=== PATIENT | female | born 1995 | race Caucasian/White ===

== ENCOUNTER 2021-03-24 17:53 | Emergency (ER) | payer OTHER ==
[2021-03-24 18:39] LABS: BASOPHILS % (AUTO) 0.6 %; EOSINOPHILS # (AUTO) 0.1 10^3/uL (0.0-0.7); EOSINOPHILS % (AUTO) 1.1 %; HCT - HEMATOCRIT 40.4 % (37.0-47.0); HGB - HEMOGLOBIN 13.6 g/dL (12.0-16.0); LYMPHOCYTES # (AUTO) 2.5 10^3/uL (1.5-3.5); LYMPHOCYTES % (AUTO) 35.8 %; MEAN CORPUSCULAR HEMOGLOBIN 30.2 pg (27.0-31.0); MEAN CORPUSCULAR HGB CONC 33.7 g/dL (32.0-36.0); MEAN CORPUSCULAR VOLUME 89.6 fL (81.0-99.0); MEAN PLATELET VOLUME 8.6 fL (7.9-10.8); MONOCYTES # (AUTO) 0.6 10^3/uL (0.0-1.0); MONOCYTES % (AUTO) 8.9 %; NEUTROPHILS # (AUTO) 3.8 10^3/uL (1.5-6.6); NEUTROPHILS % (AUTO) 53.2 %; PLT - PLATELET COUNT 340 10^3/uL (130-450); RED BLOOD COUNT 4.51 10^6/uL (4.20-5.40); RED CELL DISTRIBUTION WIDTH 12.1 % (12.0-15.0); WHITE BLOOD COUNT 7.1 x10^3/uL (4.8-10.8)
[2021-03-24 18:51] LABS: ALBUMIN 4.7 g/dL (3.2-5.5); ALBUMIN/GLOBULIN RATIO 1.4 (1.0-2.2); BILIRUBIN,TOTAL 0.7 mg/dL (0.2-1.0); CALCIUM 9.4 mg/dL (8.5-10.3); CREATININE 0.7 mg/dL (0.4-1.0); POTASSIUM 4.3 mmol/L (3.5-5.0)
[2021-03-24 18:56] LABS: BILIRUBIN,URINE NEGATIVE (NEGATIVE); GLUCOSE, URINE (UA) NEGATIVE (NEGATIVE); KETONES,URINE (UA) NEGATIVE (NEGATIVE); LEUKOCYTE ESTERASE, URINE NEGATIVE (NEGATIVE); NITRITE,URINE NEGATIVE (NEGATIVE); OCCULT BLOOD,URINE NEGATIVE (NEGATIVE); PH,URINE 5.5 PH (5.0-7.5); PROTEIN,URINE NEGATIVE (NEGATIVE); UROBILINOGEN,URINE 0.2 (NORMAL) E.U./dL (NORMAL)
[2021-03-24 18:58] LABS: CLARITY,URINE CLEAR (CLEAR); HCG UR QUAL NEGATIVE
[2021-03-24 19:08] LABS: THYROID STIMULATING HORMONE 5.22 uIU/mL (0.34-5.60)
[2021-03-24 19:10] LABS: FREE T4 (FREE THYROXINE) 1.1 ng/dL (0.58-1.64)
--- NOTE | 2021-03-24 19:22 | ED Physician Documentation ---
History of Present Illness - Stated complaint Stated Complaint: TIGHT THROAT, HARD TO TALK - Chief complaint Chief Complaint: Resp - Additonal information Additional information: 25-year-old female presents the emergency department with the sensation that her throat is closing up. She reports that she was recently diagnosed with Raymond's and has been started on levothyroxine. Earlier this morning she was on the phone speaking to her dad and began touching her throat. She felt an uncomfortable sensation in the left side of her throat and since then has felt a pressure and fluidlike sensation in it. She feels that her throat is closing up and she has felt that it is worse when talking. There have been no fevers no dysphonia. She denies a sore throat or any signs of drip. She has no cough congestion. Denies any postnasal drip. She is very anxious in the exam room tearful and crying afraid that something is wrong. Review of Systems Constitutional: denies: Fever, Chills Eyes: reports: Reviewed and negative Ears: reports: Reviewed and negative Nose: reports: Reviewed and negative Throat: reports: Other (Sensation of throat pain on the left side. 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: Endometriosis Psych: Depression, Anxiety - Past Surgical History Past Surgical History: Yes /STERILE PROCESSING TECHNICIAN: Endometrial ablation - Present Medications Home Medications: Ambulatory Orders Medication Instructions Recorded Confirmed Bupropion HCl [Wellbutrin Xl] 300 mg PO DAILY 03/24/21 03/24/21 Cetirizine [ZyrTEC] 10 mg PO BID 03/24/21 03/24/21 Dextroamphetamine/Amphetamine 10 mg PO DAILY 03/24/21 03/24/21 [Dextroamp-Amphetamine 5 mg Tab] Famotidine [Pepcid] 20 mg PO BID 03/24/21 03/24/21 Levothyroxine [Synthroid] 75 mcg PO DAILY 03/24/21 03/24/21 busPIRone [Buspar] 5 mg PO DAILY 03/24/21 03/24/21 - Allergies Allergies/Adverse Reactions: Allergies Allergy/AdvReac Type Severity Reaction Status Date / Time diphenhydramine Allergy Anaphylaxis Verified 03/24/21 17:58 [From Benadryl Allergy] Sulfa (Sulfonamide Allergy Rash Verified 03/24/21 17:58 Antibiotics) - Social History Does the pt smoke?: No Smoking Status: Never smoker Does the pt drink ETOH?: No Does the pt have substance abuse?: No PD ED PE EXPANDED - General General: Alert, Anxious - HEENT HEENT: PERRL, Moist mucous membranes, Pharynx normal, Other (Normal phonation. Full range of motion of the neck in all planes. No dysphonia. No inability to tolerate oral secretions. No external signs of swelling or asymmetry of the throat. No thyromegaly.). No: Rhinorrhea, Pharyngeal erythema, Swollen tonsils, Tonsillar exudate, DIALYSIS REGISTERED NURSE, Oral lesions / sores - Neck Neck: Supple w/out meningeal sx. No: Stiff neck, Adenopathy, Thyroid enlarged / mass, No tenderness, Limited ROM - Cardiac Cardiac: Tachy, Radial strong equal, Pedal strong equal, Cap refill < 2 sec. No: Murmur Present - Respiratory Respiratory: Clear to ausultation eve. No: Distress, Labored - Abdomen Abdomen: Normal Bowel sounds. No: Tender to palpation - Extremities Extremities: Normal - Neuro Neuro: Alert and Oriented X 3, CNII-XII intact - GCS Eye Opening: Spontaneous Motor: Obeys Commands Verbal: Oriented Total: 15 - Psych Psych: Tearful, Anxious Results - Vitals Vitals: Vital Signs - 24 hr 03/24/21 03/24/21 17:58 20:23 Temperature 36.5 C 37.2 C Heart Rate 120 H 89 Respiratory 16 18 Rate Blood Pressure 130/100 H 116/84 H O2 Saturation 98 100 Oxygen O2 Source Room air - Labs Labs: Laboratory Tests 03/24/21 03/24/21 03/24/21 18:34 18:34 18:34 WBC 7.1 RBC 4.51 Hgb 13.6 Hct 40.4 MCV 89.6 MCH 30.2 MCHC 33.7 RDW 12.1 Plt Count 340 MPV 8.6 Neut # (Auto) 3.8 Lymph # (Auto) 2.5 [place] # (Auto) 0.6 Eos # (Auto) 0.1 Baso # (Auto) 0.0 Absolute Nucleated RBC 0.00 Nucleated RBC % 0.0 Sodium 139 Potassium 4.3 Chloride 104 Carbon Dioxide 24 Anion Gap 11.0 BUN 8 Creatinine 0.7 Estimated GFR (MDRD) 101 Glucose 93 Calcium 9.4 Total Bilirubin 0.7 AST 18 ALT 12 Alkaline Phosphatase 70 Total Protein 8.0 Albumin 4.7 Globulin 3.3 Albumin/Globulin Ratio 1.4 TSH 5.22 Free T4 1.10 Urine Color Urine Clarity Urine pH Ur Specific [place] Urine Protein Urine Glucose (UA) Urine Ketones Urine Occult Blood Urine Nitrite Urine Bilirubin Urine Urobilinogen Ur Leukocyte Esterase Ur Microscopic Review Urine Culture Comments Urine HCG, Qual 03/24/21 18:50 WBC RBC Hgb Hct MCV MCH MCHC RDW Plt Count MPV Neut # (Auto) Lymph # (Auto) [place] # (Auto) Eos # (Auto) Baso # (Auto) Absolute Nucleated RBC Nucleated RBC % Sodium Potassium Chloride Carbon Dioxide Anion Gap BUN Creatinine Estimated GFR (MDRD) Glucose Calcium Total Bilirubin AST ALT Alkaline Phosphatase Total Protein Albumin Globulin Albumin/Globulin Ratio TSH Free T4 Urine Color YELLOW Urine Clarity CLEAR Urine pH 5.5 Ur Specific [place] 1.020 Urine Protein NEGATIVE Urine Glucose (UA) NEGATIVE Urine Ketones NEGATIVE Urine Occult Blood NEGATIVE Urine Nitrite NEGATIVE Urine Bilirubin NEGATIVE Urine Urobilinogen 0.2 (NORMAL) Ur Leukocyte Esterase NEGATIVE Ur Microscopic Review NOT INDICATED Urine Culture Comments NOT INDICATED Urine HCG, Qual NEGATIVE - Rads (name of study) soft tissue neck Radiology: EMP read indepedently (No acute findings) PD MEDICAL DECISION MAKING - ED course Complexity details: reviewed results, d/w patient, d/w family ED course: This is a well-appearing but anxious 25-year-old female who was recently diagnosed with Raymond's thyroiditis presents the emergency department for evaluation of discomfort on the left side of her neck. She had been touching her thyroid while on the phone with her father and felt like it was getting swollen and then she had discomfort on the left side of her neck. She reported feeling short of air. She presented to the ER tearful and quite anxious. On exam she has an unremarkable ENT exam no thyromegaly. No obvious swelling of the neck and no lymphadenopathy. She has normal phonation posterior oropharynx is also unremarkable. Screening labs are unremarkable. Her TSH and T4 have n ormalized now that she is on levothyroxine. Soft tissue neck per my interpretation is unremarkable. After some time in the ER patient's heart rate has normalized and she has remained free of respiratory distress. I suspect that she is likely anxious with regards to her Raymond's diagnosis and that may have triggered the symptoms. Patient is being discharged home stable condition. Emergent return precautions discussed. Departure - Departure Disposition: 01 Home, Self Care Clinical Impression: Throat discomfort, Hx of Raymond thyroiditis Condition: Stable Record reviewed to determine appropriate education?: Yes Comments: Marcia you were seen in the ER today for some discomfort on the left side of your throat. You had a sensation that your throat was swelling. Your thyroid studies today have normalized. Your TSH is normal as well is your T4. The levothyroxine is working correctly. Your screening labs were all also completely unremarkable. Your heart and lungs sound normal. On exam we do not see any findings of thyroid enlargement or swelling in the neck. An x-ray of your neck to look at the soft tissues was also normal. It is not clear to us at this time what has caused your symptoms but we do not see anything to suggest infection or swelling or problems with your thyroid. Please discuss this ED visit with your primary care doctor. If at any point you have worsening symptoms, have any fainting episodes or severe pain then please return immediately to the ER for a second evaluation.
[2021-03-24 20:24] VITALS: BP 116/84
--- NOTE | 2021-03-24 21:53 | XRAY Report ---
PROCEDURE: Neck Soft Tissue INDICATIONS: sensation of throat swelling left side TECHNIQUE: 2 views of the neck were acquired. COMPARISON: None FINDINGS: Airway: The airway appears patent. Soft tissues: Prevertebral soft tissues are normal in thickness. The epiglottis and aryepiglottic f olds appear normal. No soft tissue gas. Bones: No suspicious bony lesions. Visualized cervical spine is normally aligned. IMPRESSION: Normal soft tissue cervical spine. Normal epiglottis. Reviewed by: Trace Montanez on 03/24/2021 9:51 PM PDT Approved by: Trace Montanez on 03/24/2021 9:51 PM PDT Station ID: [id number]
== END 2021-03-24 21:00 | disposition home or self-care (01) ==
LOC: ED 17:53
DX: E06.3 Autoimmune thyroiditis (principal)
CPT/HCPCS: 36415; 80053; 81001; 81003; 81025; 84439; 84443; 85025; 87086; 99283; 99284

== ENCOUNTER 2021-10-07 07:39 | Emergency (ER) | payer OTHER ==
[2021-10-07] MEDS ORDERED: HYDROmorphone 1 MG/ML CARPUJECT IVP STA (08:01)
[2021-10-07] MEDS ORDERED: SODIUM CHLORIDE 0.9% 1,000 ML IV STA (08:01)
[2021-10-07] MEDS ORDERED: DEXAMETHASONE 10 MG/ML VIAL IVP STA (08:01)
[2021-10-07 08:34] LABS: BILIRUBIN,URINE NEGATIVE (NEGATIVE); GLUCOSE, URINE (UA) NEGATIVE (NEGATIVE); KETONES,URINE (UA) NEGATIVE (NEGATIVE); LEUKOCYTE ESTERASE, URINE NEGATIVE (NEGATIVE); NITRITE,URINE NEGATIVE (NEGATIVE); OCCULT BLOOD,URINE NEGATIVE (NEGATIVE); PROTEIN,URINE NEGATIVE (NEGATIVE); UROBILINOGEN,URINE 0.2 (NORMAL) E.U./dL (NORMAL)
[2021-10-07 08:43] LABS: CLARITY,URINE CLEAR (CLEAR); HCG UR QUAL NEGATIVE
--- NOTE | 2021-10-07 09:09 | ED Physician Documentation ---
PD HPI ABD PAIN - Stated complaint Stated Complaint: BODY PX - Chief complaint Chief Complaint: General - History obtained from History obtained from: Patient - History of Present Illness Timing - onset: Yesterday Timing - duration: Days (1) Timing - details: Abrupt onset, Still present Quality: Cramping, Aching Location: Periumbilical, Suprapubic Radiation: (some discomfort with urination). No: Chest, Lower back Associated symptoms: Nausea, Other (diffuse body aches). No: Fever, Vomiting, Diarrhea Similar symptoms before: Diagnosis (MCAS (Mast Cell Activation Syndrome) - sees small business director. She gets pain response to certain triggers/allergens.) Recently seen: Clinic (got COVID vaccine yesterday.) Review of Systems Constitutional: reports: Myalgias. denies: Fever, Chills Nose: denies: Rhinorrhea / runny nose, Congestion Throat: denies: Sore throat Respiratory: reports: Dyspnea. denies: Cough GI: reports: Abdominal Pain, Nausea. denies: Vomiting, Diarrhea : reports: Dysuria Skin: denies: Rash, Lesions Neurologic: reports: Generalized weakness. 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 Psych: Depression, Anxiety - Past Surgical History Past Surgical History: Yes /CLINICAL INFORMATICS DIRECTOR: Endometrial ablation - Present Medications Home Medications: Ambulatory Orders Medication Instructions Recorded Confirmed Bupropion HCl [Wellbutrin Xl] 300 mg PO DAILY 03/24/21 03/24/21 Cetirizine [ZyrTEC] 10 mg PO BID 03/24/21 03/24/21 Dextroamphetamine/Amphetamine 10 mg PO DAILY 03/24/21 03/24/21 [Dextroamp-Amphetamine 5 mg Tab] Famotidine [Pepcid] 20 mg PO BID 03/24/21 03/24/21 Levothyroxine [Synthroid] 75 mcg PO DAILY 03/24/21 03/24/21 busPIRone [Buspar] 5 mg PO DAILY 03/24/21 03/24/21 HYDROcod/ACETAM 5/325 [[place] 5/325] 1 ea PO Q6H PRN #12 tablet 10/07/21 dexAMETHasone [Decadron] 4 mg PO DAILY #5 tablet 10/07/21 - Allergies Allergies/Adverse Reactions: Allergies Allergy/AdvReac Type Severity Reaction Status Date / Time diphenhydramine Allergy Anaphylaxis Verified 03/24/21 17:58 [From Benadryl Allergy] Sulfa (Sulfonamide Allergy Rash Verified 03/24/21 17:58 Antibiotics) - Social History Does the pt smoke?: No Smoking Status: Never smoker Does the pt drink ETOH?: No Does the pt have substance abuse?: No PD ED PE NORMAL - Vitals Vital signs reviewed: Yes - General General: Alert and oriented X 3, Well developed/nourished, Other (appears in pain generally, not just abd. ) - HEENT HEENT: Pharynx benign (no edema) - Neck Neck: Supple, no meningeal sign, No adenopathy - Cardiac Cardiac: RRR, No murmur - Respiratory Respiratory: Clear bilaterally - Abdomen Abdomen: Normal bowel sounds, Soft, Non distended, No organomegaly, Other (mild tender suprapubic and mid abd without guarding, percussion nor rebound t enderness. ) - Derm Derm: Normal color, Warm and dry, No rash - Neuro Neuro: Alert and oriented X 3, No motor deficit, Normal speech Results - Vitals Vitals: Vital Signs - 24 hr 10/07/21 10/07/21 10/07/21 07:45 08:11 09:24 Temperature 37.2 C Heart Rate 110 H 98 102 H Respiratory 18 18 18 Rate Blood Pressure 145/80 H 140/83 H 138/68 H O2 Saturation 99 98 100 Oxygen O2 Source Room air - Labs Labs: Laboratory Tests 10/07/21 08:23 Urine Color YELLOW Urine Clarity CLEAR Urine pH 6.0 Ur Specific [place] <=1.005 Urine Protein NEGATIVE Urine Glucose (UA) NEGATIVE Urine Ketones NEGATIVE Urine Occult Blood NEGATIVE Urine Nitrite NEGATIVE Urine Bilirubin NEGATIVE Urine Urobilinogen 0.2 (NORMAL) Ur Leukocyte Esterase NEGATIVE Ur Microscopic Review NOT INDICATED Urine Culture Comments NOT INDICATED Urine HCG, Qual NEGATIVE PD MEDICAL DECISION MAKING - ED course Complexity details: reviewed results, considered differential (seems likely myalgias and intestinal cramps from the COVID vaccine and her response to it. I guess I would expect hives and itching with MCAS, but she says her response is myalgias and stomach pains. SHared decision for minimal testing. ), d/w patient Departure - Departure Disposition: 01 Home, Self Care Clinical Impression: Lower abdominal pain, Myalgia after COVID-19 vaccination, Mast cell activation syndrome Condition: Stable Record reviewed to determine appropriate education?: Yes Follow-Up: Agustín Blue MD [Primary Care Provider] - Prescriptions: dexAMETHasone [Decadron] 4 mg PO DAILY #5 tablet HYDROcod/ACETAM 5/325 [[place] 5/325] 1 ea PO Q6H PRN #12 tablet PRN Reason: Pain Comments: Your urine and test are normal. Recheck if consistent pain in the lower abdomen but at this point we can assume its some inflammatory response along with the general body aches as part of the MCAS. Decadron 6 steroid daily for 5 more days. Use Tylenol every 4-6 hours if needed. Continue with your usual medications including some extra cetirizine for the next few days. Add hydrocodone every 4-6 hours if needed for pains. This would be intended short-term over the next day or 2. I would assume things will improve in that timeframe. I transmitted your prescriptions to [facility] pharmacy in [place]. I am prescribing a short course of narcotic pain medication for you. These are potentially dangerous and addictive medications that should be used carefully. These medications may constipate you. Take an [id number] stool softener such as docusate twice daily with plenty of water while taking these medications. If you go 24 hours without a bowel movement, take [id number] MiraLAX, per package instructions. Do not drink or drive while taking these medications. If you received narcotic or sedating medications while in the emergency department do not drive for 24 hours. Store this medication in a safe, secure place and out of reach of children. It is a violation of federal law to give or sell this medication to another person or to use in a manner other than prescribed. The ED will not refill narcotic prescriptions, including prescriptions lost or stolen. You can dispose of unwanted medications at the [facility]'s office or at several pharmacies such as [facility]. Discharge Date/Time: 10/07/21 09:27
[2021-10-07] MEDS ORDERED: ONDANSETRON 4 MG/2 ML VIAL IVP STA (09:15)
[2021-10-07 09:27] VITALS: BP 138/68
== END 2021-10-07 09:27 | disposition home or self-care (01) ==
LOC: ED 07:39
DX: D89.40 Mast cell activation, unspecified (principal); M79.10 Myalgia, unspecified site; T50.B95A Adverse effect of other viral vaccines, initial encounter
CPT/HCPCS: 81003; 81025; 96374; 96375; 99283; 99284; J1170; 81001; 87086